=== PATIENT | male | born 1960 | race Caucasian/White ===

== ENCOUNTER → 2016-12-03 | Outpatient (REF) ==
[~2016-12-03] MED LIST: ASPIRIN 32325 MG/TAB PO; BYSTOLIC2.5 MG; DILAUDID 2MG TAB2 MG PO; LORTAB 10/500 51 TAB PO; MOTRIN 800800 MG/TAB PO; MULTIVITAMIN1 TA1 PO; NORCO 325 MG-101 TAB PO; NORCO 325 MG-51 TAB PO; PERCOCET 325 MG1 TA2 PO; PREDNISONE20 MG PO; PRISTIQ 50 MG T50 MG; RITALIN 5MG5 MG/TAB PO; SEROQUEL 2525 MG/TAB; SEROQUEL 2525 MG/TAB PO; ZYRTEC 10MG10 MG PO; vibrid PO
[2016-12-03 12:17] LABS: PSA-TOTAL 1.94 ng/mL (0-4)
[2016-12-03 12:18] LABS: THYROID STIMULATING HORMONE 0.472 uIU/mL (0.465-4.680)
[2016-12-03 12:20] LABS: C-REACTIVE PROTEIN < 0.5 mg/dL (0.0-0.9)
== END ==
LOC: ZLAB.WCH 11:21
PROVIDERS: Internal Medicine
DX: Z01.89 Encounter for other specified special examinations (principal)
CPT/HCPCS: G0103

== ENCOUNTER 2017-08-13 15:03 | Emergency (ER) | payer BC ==
[~2017-08-13] VITALS: Ht 180.3 cm; Wt 104.5 kg
[~2017-08-13 15:03] MED LIST changes: -BYSTOLIC2.5 MG; +BYSTOLIC2.5 MG PO
[2017-08-13 15:10] VITALS: TEMP 97.5
[2017-08-13] MEDS ORDERED: ADDERALL20 MG PO (15:25)
[2017-08-13] MEDS ORDERED: NORCO 325 MG-101 TAB PO (15:25)
[2017-08-13] MEDS ORDERED: RESTORIL 1515 MG/CAP PO (15:26)
[2017-08-13] MEDS ORDERED: EFFEXOR XR75 MG/CAP PO (15:35)
[2017-08-13] MEDS ORDERED: DOXYCYCLINE 10100 MG PO (15:35)
[2017-08-13] MEDS ORDERED: ROBAXIN 75750 MG/TAB PO (15:36)
[2017-08-13] MEDS ORDERED: REMERON 15M15 MG/TA1 PO (15:36)
[2017-08-13] MEDS ORDERED: FLOMAX 0.40.4 MG/CAP PO (15:36)
[2017-08-13 15:58] VITALS: BP 119/78; PULSE 89
== END 2017-08-13 16:00 | disposition home or self-care (01) ==
LOC: COL.ER 15:03
DX: I47.9 Paroxysmal tachycardia, unspecified (principal); G89.29 Other chronic pain; M54.9 Dorsalgia, unspecified; Z79.82 Long term (current) use of aspirin

== ENCOUNTER 2018-07-13 23:54 | Emergency (ER) | payer MEDICARE, BC ==
[~2018-07-13] VITALS: Ht 180.3 cm; Wt 106.8 kg
[~2018-07-13 23:54] MED LIST changes: +ADDERALL20 MG PO; -BYSTOLIC2.5 MG PO; +BYSTOLIC5 MG PO; +DOXYCYCLINE 10100 MG PO; +EFFEXOR XR75 MG/CAP PO; +FLOMAX 0.40.4 MG/CAP PO; +REMERON 15M15 MG/TA1 PO; +RESTORIL 1515 MG/CAP PO; +ROBAXIN 75750 MG/TAB PO
[2018-07-13 23:57] VITALS: TEMP 97.4
[2018-07-14 00:13] LABS: HEMATOCRIT 46.1 % (42.0-52.0); MEAN CELL VOLUME 94 fl (80.0-100.0); MEAN CORPUSCULAR HEMOGLOBIN 33 pg (27.0-31.0); MEAN CORPUSCULAR HGB CONC 35 g/dl (33.0-37.0); MEAN PLATELET VOLUME 9.8 fl (7.4-10.4); PLATELET COUNT 379 K/mm3 (130-400); RED BLOOD COUNT 4.91 M/mm3 (4.20-5.60); REDCELL DISTRIBUTION WIDTH-CV 12.8 % (11.5-14.5)
[2018-07-14 00:32] LABS: ALBUMIN 4.5 gm/dL (3.5-5.0); BILIRUBIN,TOTAL 0.5 mg/dL (0.0-1.0); CALCIUM 9.8 mg/dL (8.4-10.2); CREATININE, serum 0.8 mg/dL (0.66-1.25); TOTAL PROTEIN 7.7 gm/dL (6.4-8.2)
[2018-07-14 00:37] LABS: BAND 1 % (0-10); LYMPHOCYTE 23 % (20.0-51.0); NEUTROPHILS 67 % (42.0-75.2); PLATELET ESTIMATE NORMAL (NORMAL)
[2018-07-14 02:09] LABS: COLLECTION METHOD CLEAN CATCH
[2018-07-14 02:16] LABS: MUCOUS Present /lpf; PH 6 (5-8); SQUAMOUS EPITHELIAL None Seen /hpf; URINE APPEARANCE Clear; URINE BACTERIA None Seen /hpf; URINE BILIRUBIN Negative (NEGATIVE); URINE BLOOD Negative (NEGATIVE); URINE COLOR Yellow; URINE GLUCOSE Negative (NEGATIVE); URINE KETONE Negative (NEGATIVE); URINE LEUKOCYTE ESTERASE Negative (NEGATIVE); URINE NITRATE Negative (NEGATIVE); URINE PROTEIN(semi-quant) Negative (NEGATIVE); URINE RBC 0-2 /hpf; URINE UROBILINOGEN Negative (NEGATIVE); URINE WBC 0-2 /hpf
[2018-07-14] MEDS ORDERED: FLEXERIL 1010 MG/TAB PO (02:17)
[2018-07-14] MEDS ORDERED: COLACE 100100 MG/CAP PO (02:21)
[2018-07-14] MEDS ORDERED: PEPCID 20MG TAB20 MG PO (02:21)
[2018-07-14] MEDS ORDERED: PREDNISONE20 MG PO (03:40)
[2018-07-14 03:55] VITALS: BP 136/98; PULSE 80
[2018-07-14] MEDS ORDERED: LIDODERM 5% PATC1 EA TP (12:36)
[2018-07-15] MEDS ORDERED: DILAUDID 2MG TAB2 MG PO (22:30)
== END 2018-07-14 03:58 | disposition home or self-care (01) ==
LOC: COL.ER 23:54
PROVIDERS: Emergency Medicine
DX: M54.16 Radiculopathy, lumbar region (principal); I10 Essential (primary) hypertension; F90.9 Attention-deficit hyperactivity disorder, unspecified type; N40.0 Benign prostatic hyperplasia without lower urinary tract symptoms; Z90.89 Acquired absence of other organs; Z79.82 Long term (current) use of aspirin
CPT/HCPCS: J1170; J1885; J2405; J3010; J7030; J7512

== ENCOUNTER 2018-07-15 18:45 | Emergency (ER) | payer MEDICARE, BC ==
[~2018-07-15] VITALS: Ht 180.3 cm; Wt 106.8 kg
[~2018-07-15 18:45] MED LIST changes: +COLACE 100100 MG/CAP PO; +FLEXERIL 1010 MG/TAB PO; +LIDODERM 5% PATC1 EA TP; +PEPCID 20MG TAB20 MG PO
[2018-07-15 18:46] VITALS: TEMP 97.8
[2018-07-15] MEDS ORDERED: DILAUDID 2MG TAB2 MG PO (22:30)
[2018-07-15 22:52] VITALS: BP 146/91; PULSE 65
== END 2018-07-15 22:54 | disposition home or self-care (01) ==
LOC: COL.ER 18:45
DX: M51.26 Other intervertebral disc displacement, lumbar region (principal); M54.16 Radiculopathy, lumbar region; F32.9 Major depressive disorder, single episode, unspecified; Z98.890 Other specified postprocedural states
CPT/HCPCS: J1170; J1885; J2060; J2405; J7030

== ENCOUNTER → 2018-11-19 | Outpatient (REF) ==
[2018-11-19 17:19] LABS: THYROID STIMULATING HORMONE 1.35 uIU/mL (0.465-4.680)
[2018-11-19 17:30] LABS: PSA-TOTAL 1.84 ng/mL (0-4)
== END ==
LOC: ZLAB.WCH 16:10
PROVIDERS: Internal Medicine
DX: Z01.89 Encounter for other specified special examinations (principal)
CPT/HCPCS: G0103

== ENCOUNTER 2019-02-14 07:12 | Day surgery (SDC) | payer MEDICARE, BC ==
[~2019-02-14] VITALS: Ht 180.3 cm; Wt 106.8 kg
[2019-02-14] MEDS ORDERED: PRILOSEC 20MG20 MG PO (08:35)
[2019-02-14] MEDS ORDERED: MULTI VITAMINS1 TAB PO (08:36)
[2019-02-14] MEDS ORDERED: FLEXERIL 1010 MG/TAB PO (08:37)
[2019-02-14] MEDS ORDERED: NORCO 325 MG-101 TAB PO (08:38)
[2019-02-14] MEDS ORDERED: RESTORIL 1515 MG/CAP PO (08:44)
[2019-02-14] MEDS ORDERED: METAMUCIL MUL0.52 GM PO (08:46)
--- NOTE | 2019-02-14 09:00 | NUR ---
Pt to SDC via wheel chair from ED. See assesment. Pt feels as though he is swallowing better. Pt wanting to sleep. Refuses warm blanket at this time. Lights dimmed. Will continue to monitor. Call light within reach.
[2019-02-14 09:21] VITALS: BP 124/71; PULSE 65; TEMP 97.6
--- NOTE | 2019-02-14 10:00 | NUR ---
Pt sleeping. Respirations even and unlabored. Call light within reach.
--- NOTE | 2019-02-14 11:30 | NUR ---
Pt continues to rest. Pt states he has a "sore throat" but that has been able to rest comfortably without nausea. NS 1000ml hung to left forearm site. Will continue to monitor. Call light within reach.
[2019-02-14 13:15] VITALS: BP 123/51; PULSE 65; TEMP 97.7
--- NOTE | 2019-02-14 13:15 | NUR ---
Pt to [facility] [place] [facility] via cart from ENDO. Pt drowsy, but awake. Pt denies pain or nausea. Sips of sprite taken without difficulties. Pt up to restroom with stand by assistance. Pt voids without difficulties. Pt back to room. Will continue to monitor.
[2019-02-14 13:30] VITALS: BP 135/62; PULSE 64
--- NOTE | 2019-02-14 13:30 | NUR ---
Pt continuets to rest. Denies needs. Call light within reach.
[2019-02-14 13:45] VITALS: BP 125/74; PULSE 81
--- NOTE | 2019-02-14 13:45 | NUR ---
Discharge instructions reviewed. Pt voices understanding. IV site discontinued with all parts intact. Pt states it will be about 4 hours before his is able to pick him up. Will let pt rest in room. Menue given so pt can order food if wanted. Call light within reach.
[2019-02-14] MEDS ORDERED: PROTONIX 40MG T40 MG PO (14:14)
--- NOTE | 2019-02-14 14:50 | NUR ---
Lunch tray delivered. Pt denies further needs at this time. Call light within reach.
--- NOTE | 2019-02-14 15:23 | NUR ---
Pt resting. Tolerated lunch meal with no difficulties. Will continue to monitor. Call light within reach.
--- NOTE | 2019-02-14 16:30 | NUR ---
Pt sleeping. Respirations even and unlabored. Call light within reach.
--- NOTE | 2019-02-14 17:10 | NUR ---
Patient dismissed to home per private vehicle driven by spouse and taken to the emergency room entrance by wheelchair and assisted into vehicle. Dismissal instructions in hand.
== END 2019-02-14 17:10 | disposition home or self-care (01) ==
LOC: COL.ER 07:12 → SDCO 07:42
DX: K21.0 Gastro-esophageal reflux disease with esophagitis (principal); K22.2 Esophageal obstruction; Z88.1 Allergy status to other antibiotic agents; Z88.0 Allergy status to penicillin; Z79.82 Long term (current) use of aspirin; F32.9 Major depressive disorder, single episode, unspecified; Z87.891 Personal history of nicotine dependence; J30.2 Other seasonal allergic rhinitis; M19.90 Unspecified osteoarthritis, unspecified site; G89.29 Other chronic pain; M54.5 Low back pain; N40.0 Benign prostatic hyperplasia without lower urinary tract symptoms
CPT/HCPCS: C1726; J2405; J2704; J3010; J7030

== ENCOUNTER 2020-12-09 08:15 | Day surgery (SDC) | payer MEDICARE, BC ==
[~2020-12-09] VITALS: Ht 177.8 cm; Wt 112.3 kg
[2020-12-09] VITALS (8 sets, daily range): BP systolic 111–131; BP diastolic 63–82; PULSE 60–86; TEMP 97.8–98
[~2020-12-09 08:15] MED LIST changes: +DUO-KAPS1 CAP PO; +METAMUCIL MUL0.52 GM PO; +PRILOSEC 20MG20 MG PO; +PROTONIX 40MG T40 MG PO
[2020-12-09] MEDS ORDERED: BYSTOLIC10 MG PO (09:34)
--- NOTE | 2020-12-09 10:00 | NUR ---
Patient is resting on cart and is awaits surgery.
--- NOTE | 2020-12-09 11:00 | NUR ---
Continues to rest on cart and is awaiting surgery.
--- NOTE | 2020-12-09 14:30 | NUR ---
Patient returns to room 2 per cart from PACU and is awake and alert. Temp 98.1 and sats 93% on 2L per nasal cannula. Patient has an ice bag to neck for chronic neck pain. Also placed ice bag on the left side of abdomen over incisions. IV fluids infusing. Exofin skin glue over incisions x3 and wound edges well approximated. Siderails up x2 and call light in reach. Allowed to rest. Spouse notified that patient is back in room and resting.
--- NOTE | 2020-12-09 14:45 | NUR ---
Resting and denies pain. States that he is having intermittent nausea.
--- NOTE | 2020-12-09 15:00 | NUR ---
Continues to rest with intermittent nausea.
--- NOTE | 2020-12-09 15:02 | NUR ---
Medicated with Zofran 4mg IV for continued nausea. IV infusing at TKO.
--- NOTE | 2020-12-09 15:15 | NUR ---
Continues to rest and denies further nausea.
--- NOTE | 2020-12-09 15:30 | NUR ---
IV to INT. Assisted up to the bathroom and gait steady. Voids and returns to room. Sips on diet Sprite and eating crackers.
--- NOTE | 2020-12-09 15:50 | NUR ---
Was medicated with [place] 5mg one tab for neck and back pain. States that the incisional area is sore but tolerable. INT discontinued.
--- NOTE | 2020-12-09 16:05 | NUR ---
Dismissal instructions given and voices understanding of these. Patient dresses self.
--- NOTE | 2020-12-09 16:10 | NUR ---
Patient dismissed to home driven by spouse and taken to the front door per wheelchair and assisted into vehicle by this RN with all instructions in hand.
== END 2020-12-09 16:10 | disposition home or self-care (01) ==
LOC: SDCO 08:15
DX: K43.2 Incisional hernia without obstruction or gangrene (principal); G89.29 Other chronic pain; K21.9 Gastro-esophageal reflux disease without esophagitis; F32.9 Major depressive disorder, single episode, unspecified; Z90.89 Acquired absence of other organs; Z79.82 Long term (current) use of aspirin; Z79.891 Long term (current) use of opiate analgesic; Z79.899 Other long term (current) drug therapy; Z87.891 Personal history of nicotine dependence; Z88.0 Allergy status to penicillin; Z91.040 Latex allergy status; Z88.1 Allergy status to other antibiotic agents; Z91.018 Allergy to other foods; Z20.822 Contact with and (suspected) exposure to COVID-19
CPT/HCPCS: C1781; J0690; J1100; J1885; J2405; J2550; J2704; J3010; J7120

== ENCOUNTER 2020-12-31 09:48 | Inpatient (IN) | payer MEDICARE, BC ==
[~2020-12-31] VITALS: Ht 180.3 cm; Wt 106.8 kg
[~2020-12-31 09:48] MED LIST changes: +BYSTOLIC10 MG PO
[2020-12-31 10:18] LABS: HEMOGLOBIN 14.1 g/dl (13.5-18.0); MEAN CELL VOLUME 93 fl (80.0-100.0); MEAN CORPUSCULAR HEMOGLOBIN 32 pg (27.0-31.0); MEAN CORPUSCULAR HGB CONC 34 g/dl (33.0-37.0); MEAN PLATELET VOLUME 9.8 fl (7.4-10.4); PLATELET COUNT 286 K/mm3 (130-400); RED BLOOD COUNT 4.43 M/mm3 (4.20-5.60); REDCELL DISTRIBUTION WIDTH-CV 13.5 % (11.5-14.5)
[2020-12-31 10:28] LABS: ALBUMIN 4.2 gm/dL (3.5-5.0); BILIRUBIN,TOTAL 1.6 mg/dL (0.0-1.0); CREATININE, serum 0.75 (0.66-1.25); POTASSIUM 4.3 mmol/L (3.4-5.0); TOTAL PROTEIN 7.8 gm/dL (6.4-8.2)
[2020-12-31 10:41] LABS: BAND 13 % (0-10); LYMPHOCYTE 3 % (20.0-51.0); NEUTROPHILS 77 % (42.0-75.2)
[2020-12-31 10:42] LABS: PLATELET ESTIMATE NORMAL (NORMAL)
[2020-12-31 11:25] LABS: COLLECTION METHOD CLEAN CATCH
[2020-12-31 11:33] LABS: MUCOUS Present /lpf; PH 6 (5-8); SQUAMOUS EPITHELIAL 0-2 /hpf; URINE APPEARANCE Hazy; URINE BACTERIA Rare /hpf; URINE BILIRUBIN Positive (NEGATIVE); URINE BLOOD Negative (NEGATIVE); URINE COLOR Amber; URINE GLUCOSE Negative (NEGATIVE); URINE KETONE Trace (NEGATIVE); URINE LEUKOCYTE ESTERASE 2+ (NEGATIVE); URINE NITRATE Negative (NEGATIVE); URINE PROTEIN(semi-quant) 2+ (NEGATIVE); URINE RBC 20-50 /hpf
[2020-12-31] MEDS ORDERED: COLACE 100100 MG/CAP PO (14:00)
[2020-12-31] MEDS ORDERED: CIPRO 500MG TA500 MG PO (14:06)
--- NOTE | 2020-12-31 14:13 | NUR ---
Patient to room via cart from ER. Ambulates from cart in hallway into room and sits on edge of bed. Alert and oriented x4. Patient says that he feels aweful. Having pain all over body but mainly in back and neck. Says that the back and neck pain is chronic but flares up when he gets ill. Says his symptoms started yesterday. Having difficulty urinating. Oriented to room.
[2020-12-31 14:25] VITALS: BP 105/53; PULSE 83; TEMP 97.9
--- NOTE | 2020-12-31 14:50 | NUR ---
Administer [place] and Azo as prescribed.
[2020-12-31 15:30] VITALS: BP 117/52; BP 17/52; PULSE 80; TEMP 97.9
--- NOTE | 2020-12-31 17:00 | NUR ---
Lying in bed trying to rest. Pain all over body is starting to increase and patient request pain medication. Administer Lucinda as prescribed. Patient will order dinner a little later on. Denies additional needs.
[2020-12-31 19:10] VITALS: BP 115/70; PULSE 89; TEMP 100.4
--- NOTE | 2020-12-31 19:58 | NUR ---
PT ASKING FOR PAIN MEDS, NECK AND BACK PAIN PRESENT. MEDICATED WITH HS MEDS INCLUDING NORCO 10/325MG 1 TAB FOR PAIN. HAS IVF TO LEFT WRIST INFUSING WITHOUT PROBLEM. URINE IS ORANGE, DISCOLORED FROM AZO. REPORTS PAIN AND BURNING WITH URINATION.
--- NOTE | 2020-12-31 22:06 | NUR ---
MEDICATED WITH NORCO 10/325MG 1 TAB FOR NECK AND BACK PAIN, ALSO TAKES FLEXERIL 10MG PO NOW. IV ANTIBIOTIC INFUSING WITHOUT PROBLEM.
[2020-12-31 23:36] VITALS: BP 112/56; BP 12/56; PULSE 69; TEMP 99.9
--- NOTE | 2021-01-01 03:15 | NUR ---
MEDICATED WITH NORCO 10/325MG 1 TAB PO FOR NECK AND BACK PAIN. ICE PACK PROVIDED WELL. PT VOIDING LARGER AMOUNTS, STILL WITH PAIN AND BURNING.
[2021-01-01 03:39] VITALS: BP 113/55; PULSE 94; TEMP 98.6
--- NOTE | 2021-01-01 06:16 | NUR ---
MEDICATED WITH SCHEDULED AM MED AND NORCO 10/325MG PO FOR NECK/BACK PAIN.
[2021-01-01 06:30] LABS: BASO % 0.3 % (0.0-2.0); EOS # 0.1 (0.0-0.7); EOS % 0.4 % (0-4.0); GRAN # 11.5 (1.4-6.5); GRAN % 82.7 % (42.2-75.2); LYMPH # 0.8 (1.2-3.4); LYMPH % 5.9 % (20.0-51.0); MEAN CELL VOLUME 96 fl (80.0-100.0); MEAN CORPUSCULAR HGB CONC 34 g/dl (33.0-37.0); MONO # 1.3 (0.1-0.6); MONO % 9.6 % (1.7-9.3); PLATELET COUNT 228 K/mm3 (130-400); RED BLOOD COUNT 3.66 M/mm3 (4.20-5.60); REDCELL DISTRIBUTION WIDTH-CV 13.5 % (11.5-14.5)
[2021-01-01 06:40] LABS: HEMATOCRIT 35.2 % (42.0-52.0); HEMOGLOBIN 11.8 g/dl (13.5-18.0); MEAN CORPUSCULAR HEMOGLOBIN 32 pg (27.0-31.0)
[2021-01-01 06:44] LABS: ALBUMIN 3.4 gm/dL (3.5-5.0); BILIRUBIN,TOTAL 1.1 mg/dL (0.0-1.0); CALCIUM 8.2 mg/dL (8.4-10.2); CREATININE, serum 0.7 (0.66-1.25); MAGNESIUM 1.8 mg/dL (1.6-2.3); POTASSIUM 4.1 mmol/L (3.4-5.0); TOTAL PROTEIN 6.4 gm/dL (6.4-8.2)
[2021-01-01 07:14] VITALS: PULSE 74; TEMP 98.3
[2021-01-01 08:05] VITALS: BP 122/84
--- NOTE | 2021-01-01 11:00 | NUR ---
Patient has been doing well this morning. He continues to have pain when voiding but stated it is getting better. Denies nausea. He is taking his norco as needed. He can have it every 2 hours but it has been 3-4 hours in between. He has ice packs to his neck. He has chronic back and neck pain that he stated our bed and chair are making the pain worse. He stated he has a special chair at home that sits in all the time for pain. No other changes at this time. Call light within reach.
--- NOTE | 2021-01-01 11:45 | NUR ---
SW met with the patient to discuss discharge plan. The patient lives in [place] with his , Ivy (ph#[phone]). He reports independence with ADLs and does not have any DME. The patient's PCP is Dr. Cb Brink and he receives his medications from [facility]. He reports no difficulties obtaining his meds. The patient does not have a DPOA-HC in EMR, but he states that he believes he has one completed and that it designates his . The patient plans to return home with his upon discharge. No additional needs at this time. *Discharge plan: home with *
[2021-01-01 11:47] VITALS: BP 127/64; PULSE 82; TEMP 98.5
--- NOTE | 2021-01-01 13:08 | NUR ---
Initial visit; Patient thanked Warrant Clerk for looking in on him and offering God's blessings and keeping hin in Warrant Clerk's prayers.
[2021-01-01] MEDS ORDERED: CIPRO 500MG TA500 MG PO (14:25)
[2021-01-01] MEDS ORDERED: AZO URINARY PAI95 MG PO (14:26)
--- NOTE | 2021-01-01 16:15 | NUR ---
Patient is discharging home. DIscharge instructions discussed with patient. INT discontinued. He has his script for Cipro at home that he got filled before coming to the hospital. Explained when his follow up appointments are. Copies of discharge instructions sent with patient. He is going to lay down and wait for his ride. He has belongings packed up. No other changes at this time. Call light within reach.
== END 2021-01-01 17:00 | disposition home or self-care (01) | DRG 872 ==
LOC: COL.ER 09:48 → SURG 12:34
PROVIDERS: Internal Medicine; Physician Assistant; ADMIT Hospitalist
DX: A41.9 Sepsis, unspecified organism (principal); N39.0 Urinary tract infection, site not specified; E87.1 Hypo-osmolality and hyponatremia; F32.9 Major depressive disorder, single episode, unspecified; N40.0 Benign prostatic hyperplasia without lower urinary tract symptoms; G89.29 Other chronic pain; K21.9 Gastro-esophageal reflux disease without esophagitis; F98.8 Other specified behavioral and emotional disorders with onset usually occurring in childhood and adolescence; F17.210 Nicotine dependence, cigarettes, uncomplicated; Z79.82 Long term (current) use of aspirin
CPT/HCPCS: 99223-AI; 99232-AI; 99239; J0744; J1170; J1650; J1885; J3010; J7030; Q9967